=== PATIENT | male | born 1980 | race Caucasian/White ===

== ENCOUNTER 2016-09-15 01:53 | Emergency (ER) | payer SELFPAY ==
[~2016-09-15] VITALS: Ht 185.4 cm; Wt 61.2 kg
[2016-09-15 01:59] VITALS: BP 143/93
== END 2016-09-15 02:51 | disposition home or self-care (01) ==
LOC: ER 01:53
DX: H92.02 Otalgia, left ear (principal); F17.210 Nicotine dependence, cigarettes, uncomplicated
CPT/HCPCS: 99281; A4606; Z7610; Z7502